=== PATIENT | male | born 1990 | race Caucasian/White ===

== ENCOUNTER 2021-05-24 19:12 | Emergency (ER) | payer MEDICAID ==
--- NOTE | 2021-05-24 19:42 | EDM.PDOC ---
ED HPI GENERAL MEDICAL PROBLEM - General Chief Complaint: Allergic Reaction Stated Complaint: MEDICAL VIA MINERAL Time Seen by Provider: 05/24/21 19:31 Source of Information: Reports: Patient, EMS History Limitations: Reports: No Limitations - History of Present Illness INITIAL COMMENTS - FREE TEXT/NARRATIVE: Agapito is a 30-year-old male presenting to the ED via [facility] from [place] for evaluation of a bee sting. Patient was stung on the back just below the right scapula. He initially was diaphoretic but did not experience any shortness of breath although he does have anxiety and became quite panicked. 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 He does not carry an EpiPen. He has been at [place] for 15 days or is in treatment for methamphetamine addiction. Mask did put an IV in him and gave him 50 g IV diphenhydramine. The patient arrives in no acute distress with resolution of his anxiety and diaphoresis. At no time did he experience any of the anaphylactic symptoms. right shoulder area Pain Score (Numeric/FACES): 6 - Related Data Allergies Allergy/AdvReac Type Severity Reaction Status Date / Time amoxicillin [From Augmentin] Allergy Other Verified 05/24/21 19:23 bee venom protein (honey bee) Allergy Anaphylactic Verified 05/24/21 19:23 Shock clavulanic acid Allergy Other Verified 05/24/21 19:23 [From Augmentin] Penicillins Allergy Other Verified 05/24/21 19:23 Home Meds: Home Meds hydroCHLOROthiazide [Hydrochlorothiazide] 25 mg PO DAILY 05/24/21 [History] Past Medical History HEENT History: Reports: Impaired Vision, Other (See Below) Other HEENT History: glasses Psychiatric History: Reports: ADHD, Addiction, Anxiety, Depression - Past Surgical History Cardiovascular Surgical History: Reports: Valve Replacement, Other (See Below) Other Cardiovascular Surgeries/Procedures: aortic valva replacement Social & Family History - Tobacco Use Tobacco Use Comment: smokes ciggs and chews tobacco - Recreational Drug Use Recreational Drug Use: Yes ED ROS ALLERGIC REACTION - Review of Systems Review Of Systems: See Below Constitutional: Reports: Diaphoresis HEENT: Reports: No Symptoms Respiratory: Reports: No Symptoms Cardiovascular: Reports: No Symptoms Endocrine: Reports: No Symptoms GI/Abdominal: Reports: No Symptoms : Reports: No Symptoms Musculoskeletal: Reports: No Symptoms Skin: Reports: Wound (Insect sting to the right back just below the scapula. Area of redness and mild tenderness. No swelling.) Neurological: Reports: No Symptoms Psychiatric: Reports: Anxiety Hematologic/Lymphatic: Reports: No Symptoms Immunologic: Reports: No Symptoms ED EXAM GENERAL NO PERIP PULSE - Physical Exam Exam: See Below Exam Limited By: No Limitations General Appearance: Alert, No Apparent Distress, Anxious Eye Exam: Bilateral Eye: EOMI, PERRL Ears: Normal External Exam, Normal TMs Nose: Normal Inspection Throat/Mouth: Normal Inspection, Normal Oropharynx Head: Atraumatic, Normocephalic Neck: Normal Inspection, Supple, Non-Tender, Full Range of Motion. No: Lymphadenopathy (R), Lymphadenopathy (L) Respiratory/Chest: No Respiratory Distress, Lungs Clear, Normal Breath Sounds Cardiovascular: Normal Peripheral Pulses, Regular Rate, Rhythm GI/Abdominal: Normal Bowel Sounds, Soft, Non-Tender Back Exam: Normal Inspection Extremities: Normal Inspection Neurological: Alert, Oriented, Normal Cognition, No Motor/Sensory Deficits Psychiatric: Normal Affect Skin Exam: Warm, Erythema (6 mm area of redness just below the right scapula on the back. There is mild swelling. Mild tenderness to palpation.) Lymphatic: No Adenopathy Course - Vital Signs Last Recorded V/S: Last Vital Signs Temp 36.4 C 05/24/21 19:27 Pulse 95 05/24/21 19:27 Resp 17 05/24/21 19:27 BP 141/77 H 05/24/21 19:27 Pulse Ox 100 05/24/21 19:27 - Orders/Labs/Meds Meds: Medications Discontinued Medications Generic Name Dose Route Start Last Admin Trade Name Sidney PRN Reason Stop Dose Admin Methylprednisolone Sodium Succinate 125 mg 05/24/21 19:44 05/24/21 20:28 Methylprednisolone Sodium Succinate 125 Mg/2 Ml Sdv IVPUSH 05/24/21 19:45 125 mg ONETIME ONE Administration Departure - Departure Time of Disposition: 20:32 Disposition: Home, Self-Care 01 Clinical Impression: Bee sting reaction Qualifiers: Encounter type: initial encounter Injury intent: accidental or unintentional Qualified Code(s): T63.441A - Toxic effect of venom of bees, accidental (unintentional), initial encounter - Discharge Information Instructions: Bee, Wasp, or Hornet Sting, Adult Referrals: PCP,None [Primary Care Provider] - Forms: ED Department Discharge Care Plan Goals: You sustained an insect sting likely yellowjacket or "ground bee" to your right back just below the scapula. It does not appear that she had a major reaction this time, however, we did give you an injection with Solu-Medrol which is a long-acting steroid to counter the inflammation. You may continue to use Benadryl if necessary for any histamine reaction. If you start to develop any shortness of breath, lightheadedness, dizziness, or choking sensation please call 911 and return to the ED for reevaluation. Sepsis Event Note (ED) - Evaluation Sepsis Screening Result: No Definite Risk - Focused Exam Vital Signs: Vital Signs Temp Pulse Resp BP Pulse Ox 05/24/21 19:27 36.4 C 95 17 141/77 H 100 05/24/21 19:26 36.4 C 95 17 141/77 H 100 - Problem List & Annotations (1) Bee sting reaction SNOMED Code(s): 118024002, [id number], [id number] Code(s): T63.441A - TOXIC EFFECT OF VENOM OF BEES, ACCIDENTAL, INIT Status: Acute Priority: Medium Current Visit: Yes Qualifiers: Encounter type: initial encounter Injury intent: accidental or unintentional Qualified Code(s): T63.441A - Toxic effect of venom of bees, accidental (unintentional), initial encounter - Problem List Review Problem List Initiated/Reviewed/Updated: Yes
[2021-05-24] MEDS ORDERED: methylPREDNISolone Sodium Succinate 125 MG/2 ML SDV IVPUSH ONE (19:44)
== END 2021-05-24 21:21 | disposition home or self-care (01) ==
LOC: JP.ED 19:12
DX: T63.441A Toxic effect of venom of bees, accidental (unintentional), initial encounter (principal); Z88.0 Allergy status to penicillin; Z91.030 Bee allergy status
CPT/HCPCS: 96374; 99282; J2930